=== PATIENT | female | born 1945 | race Caucasian/White ===

== ENCOUNTER → 2019-02-03 | Outpatient (CLI) | payer MEDICARE, OTHER ==
[2019-02-03 08:40] LABS: CHOLESTEROL 225 mg/dL (<200); HDL CHOLESTEROL 67 mg/dL (>40); LDL CHOLESTEROL 138 mg/dL (<100); TC:HDL 3.4 Ratio (Not establshd); TRIGLYCERIDE 100 mg/dL (<150); VLDL 20 mg/dL (<40)
[2019-02-03 08:41] LABS: SERUM ASSESSMENT Clear
== END ==
LOC: M.LAB 08:07
PROVIDERS: Internal Medicine Cardiovascular Disease
DX: I25.10 Atherosclerotic heart disease of native coronary artery without angina pectoris (principal)

== ENCOUNTER → 2021-02-22 | Outpatient (CLI) | payer OTHER | LOC: M.CT 07:53 | PROVIDERS: ATTEND Family Medicine | DX: N20.0 Calculus of kidney (principal); N28.1 Cyst of kidney, acquired; I72.2 Aneurysm of renal artery; K57.30 Diverticulosis of large intestine without perforation or abscess without bleeding; I70.0 Atherosclerosis of aorta; K42.9 Umbilical hernia without obstruction or gangrene; I77.819 Aortic ectasia, unspecified site; R31.0 Gross hematuria; R30.0 Dysuria ==

== ENCOUNTER 2021-07-14 21:28 | Emergency (ER) | payer OTHER ==
[~2021-07-14] VITALS: Ht 175.3 cm; Wt 65.8 kg
[2021-07-14] MEDS ORDERED: LISINOPRIL10 MG PO (21:38)
[2021-07-14 22:01] LABS: ABSOLUTE EOSINOPHILS 0.2 thou/uL (0.0-0.7); ABSOLUTE LYMPHOCYTES 2.8 thou/uL (0.8-5.3); ABSOLUTE MONOCYTES 0.9 thou/uL (0.0-1.2); ABSOLUTE NEUTROPHILS 4.1 thou/uL (1.6-8.1); BASOPHILS 0.4 %; EOSINOPHILS 2.7 %; HEMATOCRIT 40.3 % (37.0-47.0); HEMOGLOBIN 13.4 gm/dL (12.0-15.0); LYMPHOCYTES 34.7 %; MCH 28.7 pg (26.0-34.0); MCHC 33.1 g/dL (28.0-37.0); MCV 86.6 fL (80.0-100.0); MONOCYTES 11.4 %; MPV 8.2 fl. (7.2-11.1); NUCLEATED RBCS 0 /100WBC; PLATELET COUNT* 254 thou/uL (150-400); POLYS 50.8 %; RBC 4.66 mil/uL (4.20-5.00); RDW-CV 13.9 % (10.5-14.5)
[2021-07-14 22:17] LABS: ALBUMIN 3.4 g/dL (3.4-5.0); CALCIUM 8.9 mg/dL (8.5-10.1); CREATININE 0.8 mg/dL (0.6-1.3); POTASSIUM 3.8 mmol/L (3.5-5.1); TOTAL BILIRUBIN 0.3 mg/dL (<0.1-1.0); TOTAL PROTEIN 7.5 g/dL (6.4-8.2)
[2021-07-15] MEDS ORDERED: NITROGLYCERIN0.4 MG SUBLING ×2 (00:29→00:30)
[2021-07-15 00:49] VITALS: BP 141/84
--- NOTE | 2021-07-15 09:56 | EKG ---
[place] [address] ELECTROCARDIOGRAM REPORT Name: STERLING DIAMOND I Room: [facility]#: [id number] Admission: 07/14/21 Attend Phys: Discharge: 07/15/21 Date of : 45 Date of Service: 07/14/212132 Report #: [id number] THIS REPORT FOR: //name// [facility] ED Test Date: 2021-07-14 Test Time: 21:33:52 Pat Name: STERLING DIAMOND Department: Room: Gender: F [employer]: [place] : 1945 Requested By: Elizabeth Gama Order Number: [id number] MD: Migel Bell Measurements Intervals [place] Rate: 102 P: 10 HI: 201 QRS: -22 QRSD: 108 T: 54 QT: 350 QTc: 456 Interpretive Statements Sinus tachycardia Consider left atrial enlargement Probable left ventricular hypertrophy Baseline wander in lead(s) V1,V2,V4,V5 Compared to ECG 02/11/2006 08:00:59 Sinus rhythm no longer present T-wave abnormality no longer present Electronically Signed On 07-15-2021 9:55:53 [employer] by Mgiel Bell [email or web address] <ELECTRONICALLY SIGNED> By: Migel Bell MD, FACC 07/15/21 0955 32 32 Migel Bell MD, FAC /EPI
== END 2021-07-15 00:50 | disposition home or self-care (01) ==
LOC: M.ERS 21:28
PROVIDERS: Emergency Medicine
DX: R07.89 Other chest pain (principal); Z90.89 Acquired absence of other organs; Z79.899 Other long term (current) drug therapy